=== PATIENT | female | born 1985 | race Caucasian/White ===

== ENCOUNTER 2017-06-27 12:19 | Inpatient (IN) | payer BC ==
[~2017-06-27] VITALS: Ht 160 cm; Wt 47.6 kg
[~2017-06-27 12:19] MED LIST: ACET-1966 PO; CALC-515 PO; Ibuprofen PO; LOR5/325 PO; OMEP-125 PO; ONDA4TAB97 PO; PNV1COMB5
[2017-06-29] MEDS ORDERED: LR(*) 1000 ML BAG 1,000 ML IV SCH (12:14)
[2017-06-29] MEDS ORDERED: FAMOTIDINE(*) 20MG/50ML PREMIX 50 ML IVPB PRN (12:14)
[2017-06-29] MEDS ORDERED: OXYTOCIN 30 UNIT/D5LR 500 ML 500 ML IV PRN (12:14)
[2017-06-29 12:15] VITALS: BP 113/74; Ht 160 cm; Wt 47.6 kg
[2017-06-29] MEDS ORDERED: fentaNYL CITR 100 MCG/2 ML AMP IVP PRN (12:15)
[2017-06-29] MEDS ORDERED: METOCLOPRAMIDE 10 MG/2 ML SDV IVP PRN (12:15)
[2017-06-29] MEDS ORDERED: LIDOCAINE 1% LOCAL 300 MG/30ML INJ PRN (12:15)
[2017-06-29] MEDS ORDERED: FLUSH 10 ML SYR IVP PRN (12:15)
[2017-06-29] MEDS ORDERED: LIDOCAINE/SOD BICARB 8.4% SYR SC PRN (12:15)
[2017-06-29 12:37] LABS: PLATELET COUNT, AUTOMATED 103 K/uL (150-450)
[2017-06-29] MEDS ORDERED: HYDROCORTISONE 2.5% CR 30GM TB PR PRN (13:30)
[2017-06-29] MEDS ORDERED: MAGNESIUM HYDROXIDE* 30ML UDCP PO PRN (13:30)
[2017-06-29] MEDS ORDERED: BENZOCAINE 20% 60 ML BTL TP PRN (13:30)
[2017-06-29] MEDS ORDERED: ACETAMINOPHEN 325 MG TAB PO PRN (13:30)
[2017-06-29] MEDS ORDERED: GLYCERIN/WITCH HAZEL LEAF 1 PK TP PRN (13:30)
[2017-06-29] MEDS ORDERED: LANOLIN OINT 7 GM TUBE TP PRN (13:30)
[2017-06-29] MEDS ORDERED: HYDROmorphone HCL 2 MG TAB PO PRN (13:30)
--- NOTE | 2017-06-29 13:38 | OB Delivery Note ---
Delivery Note Vaginal Delivery Type: Spont. Vaginal Delivery Delivery Date: Jun 29, 2017 Delivery Time: 12:59 Estimated Gestational Age(wks): 40 Delivery Anesthesia: Local Infant Sex: Female [place] Apgars: 1 Minute (8), 5 Minute (9) Repair Needed: Laceration, Periurethral, 2nd Degree Estimated Blood Loss: 400 Delivery Complications: Nuchal Cord Notes: spontaneous labor, progressed through labor to complete allowed to push , delivered over 2nd degree laceration. No complications. laceration repired with3-0 vicryl. Tolerated well Insole Reinforcer in Attendence: No Copies to: LDUA PIERRE MD, JOHN MD Jun 29, 2017 13:38
--- NOTE | 2017-06-29 13:42 | History & Physical ---
History of Present Illness Age of Patient: 32 : 4 Para or TPAL: 2011 EDC per LMP: Jun 29, 2017 Estimated Gestational Age: 40 Chief Complaint contractions History of Present Illness The patient is a 42 year old 4 para 2011 admitted at 40 weeks estimated gestational age with an estimated date of delivery 06/29/17. Patient is admitted with complaint of contractions . No vaginal bleeding. Good movement and occasional contractions. She was evaluated for active labor. She had an uncomplicated course. Her record was reviewed. History Allergies: Coded Allergies: No Known Drug Allergies (Unverified , 02/12/14) Social History: Pharmacist. 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 No noxious habits. Med Rec Home Meds Reported Medications Calcium Carbonate (TUMS) 200 Mg Tab.chew, 200 MG PO, TAB.CHEW 06/01/17 Acetaminophen (TYLENOL) 325 Mg Tablet, 325 MG PO, TAB 06/01/17 Omeprazole (OMEPRAZOLE) 20 Mg Capsule.dr, 1 CAP PO BID, CAP 06/01/17 Pnv #116/Iron Fumarate/Fa/Dha (EXPECTA COMBO PACK) 1 Each Combo..pkg 06/01/17 Ondansetron Hcl (ZOFRAN) 4 Mg Tablet, 4 MG PO Q12H, TAB 06/01/17 Exam General Exam Cardiovascular: Regular Rate and Rhythm Respiratory: Clear to Auscultation Abdomen: Gravid - Non-Tender Extremities: No Edema Cervical Dialation: 9 Cervical Effacement (%): 100 Station: 0 Presentation: Vertex Uterine Contractions(Q min): 3 Uterine Contraction Strength: Strong Fetus Heart Tones: 130 FHT Category: I Medical Decision Making Data Points Result Diagram: 06/29/17 1222 Assessment and Plan Problems: (1) Active labor at term Status: Resolved Assessment & Plan: active labor AROM clear fluid will monitor for change Copies to: LDUA PIERRE MD, JOHN MD Jun 29, 2017 13:42
[2017-06-29] MEDS ORDERED: LIDOCAINE 1% LOCAL 300 MG/30ML 30 ML ONE (14:45)
[2017-06-29] MEDS: IBUPROFEN 800 MG TAB PO SCH ×2 (14:56→23:04)
[2017-06-29 15:05] VITALS: BP 128/58
[2017-06-29 19:37] VITALS: BP 112/60
[2017-06-29] MEDS: DOCUSATE CALCIUM 240 MG CAP PO SCH (20:47)
[2017-06-29 23:09] VITALS: BP 130/68
--- NOTE | 2017-06-30 00:56 | OB Delivery Note ---
Delivery Note Vaginal Delivery Type: Spont. Vaginal Delivery Delivery Date: Jun 30, 2017 Delivery Time: 00:34 Delivery Anesthesia: Epidural Sex: Female Infant Weight (gms): 3144 Apgars: 1 Minute (8), 5 Minute (9) Repair Needed: Laceration, Vaginal, Perineal, 2nd Degree Estimated Blood Loss: 400 Notes: IOL FOR GESTATIONAL HYPERTENSION, SLOW PROGRESS INITIALLY, RECEIVED AN EPIDURAL , PROGRESSED TO 8 AROM CLEAR FLUID, PROGRESSED TO COMPLETE AND PUSHED EFFECTIVELY DELIVERED OVER MIDLINE TEAR. REPAIR WITH 3-0 VICRYL NO COMPLICATIONS High Lead Yarder in Attendence: No Copies to: LUDA PIERRE MD, JOHN MD Jun 30, 2017 00:56
[2017-06-30 03:38] VITALS: BP 114/75
--- NOTE | 2017-06-30 06:02 | OB/GYN Progress Note ---
OB Subjective Progress Notes Subjective Pain controlled, Tolerating diet and activity. Baby . Normal lochia. GI: POS Flatus, NEG Nausea, NEG Vomiting : Voiding Well Pain: Mild OB Objective Physical Exam Vital Signs Date Time Temp Pulse Resp B/P (MAP) Pulse Ox O2 Delivery O2 Flow Rate FiO2 06/30/17 03:38 98.6 64 14 114/75 (88) 94 Room Air Cardiovascular: Regular Rate and Rhythm Respiratory: Clear to Auscultation Abdomen: Fundus Firm Extremities: No Edema Result Diagram: 06/29/17 1222 Assessment and Plan Problems: (1) Active labor at term Status: Resolved (2) care following vaginal delivery Assessment & Plan: Pain controlled, Tolerating diet and activity. Baby . Normal lochia. LUDA PIERRE MD Jun 30, 2017 06:02
[2017-06-30] MEDS ORDERED: IBUP800T37 PO (06:03)
[2017-06-30] MEDS ORDERED: HYDR2TAB4 PO (06:03)
--- NOTE | 2017-06-30 06:05 | OB/GYN Discharge Summary ---
Discharge Summary Reason for Hosp/Final Diag: (1) Active labor at term Status: Resolved (2) care following vaginal delivery Hospital Course & Plan: Vaginal delivery on day 1, Pain controlled, Tolerating diet and activity. Baby . Normal lochia. Lates Vital Signs Vital Signs Date Time Temp Pulse Resp B/P (MAP) Pulse Ox O2 Delivery O2 Flow Rate FiO2 06/30/17 03:38 98.6 64 14 114/75 (88) 94 Room Air Weight (Pounds): 105 Result Diagram: 06/29/17 1222 Condition: Improved Discharge: Home, Self Long Term Meds Active Scripts Ibuprofen (IBUPROFEN) 800 Mg Tablet, 1 TAB PO Q8H, #30 TAB 0 Refills Take with food every 8 hours. Prov:LUDA WOOD MD 06/30/17 Hydromorphone Hcl (HYDROMORPHONE HCL) 2 Mg Tablet, 2-4 MG PO Q4H for PAIN, #20 TAB 0 Refills Prov:LUDA WOOD MD 06/30/17 Reported Medications Calcium Carbonate (TUMS) 200 Mg Tab.chew, 200 MG PO, TAB.CHEW 06/01/17 Acetaminophen (TYLENOL) 325 Mg Tablet, 325 MG PO, TAB 06/01/17 Omeprazole (OMEPRAZOLE) 20 Mg Capsule.dr, 1 CAP PO BID, CAP 06/01/17 Pnv #116/Iron Fumarate/Fa/Dha (EXPECTA COMBO PACK) 1 Each Combo..pkg 06/01/17 Ondansetron Hcl (ZOFRAN) 4 Mg Tablet, 4 MG PO Q12H, TAB 06/01/17 Follow up with: Dr. Wood [phone] Follow up in: 6 wks PP or PO Discharge Diet: As Tolerates Discharge Activity: Pelvic Rest Copies to: LUDA WOOD MD, JOHN MD Jun 30, 2017 06:05
[2017-06-30] MEDS: IBUPROFEN 800 MG TAB PO SCH ×2 (06:28→15:00)
[2017-06-30 07:30] VITALS: BP 107/65
[2017-06-30] MEDS: DOCUSATE CALCIUM 240 MG CAP PO SCH (08:52)
[2017-06-30] MEDS ORDERED: MULTIVITAMINS (PRENATAL) TAB PO SCH (09:00)
[2017-06-30 11:30] VITALS: BP 107/71
[2017-07-01] MEDS ORDERED: MEASLES,MUMP,RUBELLA VAC 0.5ML SUBQ ONE (09:00)
[2017-07-01] MEDS ORDERED: DIPHTH/TETANUS/ACEL. PERTUSSIS IM ONLY ONE (09:00)
[2017-07-01] MEDS ORDERED: INFLUENZA VIRUS VAC 0.5 ML SYR IM ONLY ONE (09:00)
== END 2017-06-30 16:05 | disposition home or self-care (01) | DRG 775 ==
LOC: OB 06-29 11:53
PROVIDERS: ADMIT Obstetrics & Gynecology; ATTEND Obstetrics & Gynecology
PROC: 10E0XZZ Delivery of Products of Conception, External Approach (ICD-10-PCS; principal; 2017-06-29)
PROC: 0KQM0ZZ Repair Perineum Muscle, Open Approach (ICD-10-PCS; 2017-06-29)
PROC: 10907ZC Drainage of Amniotic Fluid, Therapeutic from Products of Conception, Via Natural or Artificial Opening (ICD-10-PCS; 2017-06-29)
DX: O69.81X0 Labor and delivery complicated by cord around neck, without compression, not applicable or unspecified (principal); O70.1 Second degree perineal laceration during delivery; Z3A.40 40 weeks gestation of pregnancy; Z37.0 Single live birth
CPT/HCPCS: 36415; 85025; 86850; 86900; 86901; J2001; J2590; J7120